=== PATIENT | male | born 1990 | race Caucasian/White ===

== ENCOUNTER 2019-10-18 18:49 | Emergency (ER) | payer OTHER ==
[~2019-10-18] VITALS: Ht 177.8 cm; Wt 88.5 kg
[2019-10-18] MEDS ORDERED: SODIUM CHLORIDE 0.9% 1000ML 1,000 ML IV STA (19:03)
--- NOTE | 2019-10-18 19:15 | NUR ---
CALL CENTER DIRECTOR PERSONNEL INITIALLY APPROACHED BY DR. AMEYA RIVERA (DOCTOR OF ADDICTION SPEACIALIST) ASKING IF WE DETOX PATIENTS, WAS INSTRUCTED BY WEIGHER AND CHARGER THAT WE ARE NOT A DETOX CENTER, DR. RIVERA WALKED OUT OF FACILITY AND THEN CAME BACK STATING HE HAD SOMEONE THAT NEEDED SIMPLY TO BE CLEARED SO TO BE ADMITTED TO A BEHAVIORAL FACILTY? PT WAS WHEELED INTO FRONT LOBBY IN WHEELCHAIR BY . ONCE CALLED BACK TO TRIAGE AREA, PT WAS ASSISTED ONTO STRETCHER BY MYSELF, STANDBY ASSISTANCE ONLY NEEDED. PT WAS TRIAGED. AND IV STARTED TO LEFT FOREARM.
--- NOTE | 2019-10-18 19:20 | NUR ---
CALLED INTO ROOM BY DR RIVERA, ASKED IF PT CAN GO TO RESTROOM, I ASKED PATIENT IF IT WAS OK TO USE A URINAL SINCE WE PROBABLY WOULD NOT BE ABLE TO ASSIST PATIENT TO AND FROM RESTROOM FREQUENT SHAINADEBBI MAY NEED? PT WAS WHEELED INTO TRIAGE AREA AND INITALLY NEEDED ASSISTANCE TO GET ONTO STRETHCER, PT AGREED TO URINAL BUT THEN ASKED WHAT WERE WE GOING TO DO FOR HIS MINOR ABRASIONS TO HIS FEET, WHEN TOLD THAT WE WILL TAKE CARE OF THEM BUT RIGHT NOW THAT IS NOT A PRIORITY, PT LIFTED RT PANT LEG UP AND SHOWED A LARGER HEALING ABRASION TO RIGHT KNEE, AGAIN I NOTIFIED PT THAT WE CAN TAKE ARE OF IT BUT FOR NOW HE WOULD HAVE TO WAIT TO WE CAN DO OTHER PERTIENT TASKS, PT STATED THAT THE ABRASIONS REALLY HURT AT WHICH TIME I NOTIFIED HIM THAT WE PROBABLY WOUD NOT BE ABLE TO GIVE HIM PAIN MEDS IF THAT IS WHAT HE WAS NEEDING, PT STATED NO I DON'T WANT PAIN MEDS I JUST WANT THESE TO STOP HURTING, I ASKED PT IF HE FELT THAT BY SIMPLY PUTTING NEOSPORIN AND A BANDAID HIS PAIN WOULD BE BETTER (AT WHICH TIME DR. RIVERA SNICKERED) PT STATED YES, I WALKED STRAIGHT OVER TO [facility] AND GOT SOME NEOSPORIN AND ASKED THE TINO THE EMT TO SEE IF HE COULD DRESS THE ABRASIONS BY APPLYING NEOSPORIN, TINO DID SO BUT CAME OUT OF ROOM SAYING PATIENT WAS SAYING THE NEOSPORIN DID NOTHING FOR HIS PAIN. DR RIVERA CAME OUT OF ROOM AND WENT TO ASK DIRECTOR OF DEVELOPMENT AND MARKETING PERSONNEL FOR MY INFORMATION BECAUSE HE WAS GOING TO FILE AN INCIDENT REPORT? AT WHICH TIME I WENT OUT AND ASKED DR RIVERA FOR HIS CREDITIALS BC I FELT HE WAS GOING TO POSSIBLY LEAVE THE PATIENT, HE HAD INDICATED TO BARRY THE DAY DIRECTOR OF DEVELOPMENT AND MARKETING PERSONNEL? I FELT HE WAS GOING TO LEAVE PATIENT HERE FOR US TO TRANSFER OUT TO [facility]?
--- NOTE | 2019-10-18 19:20 | NUR ---
WHILE SPEAKING SITH DR. 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 HE FELT I WAS NOT RIGHT IN MINIMIZING PATIENTS ABRASIONS AND WHICH TIME I TOLD HIM I FELT HE WAS NOT A MEDICAL DOCTOR SO HOW COULD HE PROPERLY EVALUATE AN ABRASION, I MOE ASKED FOR HIS MEDICAL LICENSE AND HE STATED HE WAS GOING TO BE REPORTING ME? WHEN I RETURNED TO [facility]ANG IV FLUIDS ON PATIENT, PT REFUSED ANYTHING FROM ME, TINO SHEBA WAS IN ROOM WITH ME WITNESSING AND I SAID I WOULD LEAVE ROOM SOON I HUNG IV FLUIDS AND WHICH TIME HE SAID HE DID NOT WANT ANY FURTHER TREATMENT, HE WANTED TO SEE "AMEYA", I TTOLD HIM HE WAS OUTSIDE AND HE WOULD BE HOPEFULLY BE BACK, DR. MENCHACA ATTEMPTED TO START IV FLUIDS AND PATIENT AND HE REFUSED ANY TREATMENT FORM MD WELL. WHEN DR RIVERA RETURNED, DR MENCHACA AND HE WENT INTO ROOM AND DISCUSSED OPTIONS FOR PATIENT, PATIENT AGREED TO GET FLUIDS AND THEN LEAVE?
[2019-10-18] MEDS ORDERED: NEOMYCIN/POLYMYX/BACITR OINT 0.9 GM PKT ONE (19:22)
[2019-10-18] MEDS ORDERED: SODIUM CHLORIDE 0.9% 1000ML 1,000 ML ONE (19:32)
--- NOTE | 2019-10-18 19:45 | NUR ---
TINO DE SOUZA CALLED INTO ROOM BY DR RIVEAR FOR POSSIBLE NEED ONCE AGAIN TO URINATE? PER TINO ON HIS RETURN TO NURSES DESK, PT AND DR RIVERA WERE ARGUING TO PATIENTS NEED TO STAY AND BE TREATED FOR [facility], TINO STATES DR RIVERA THREATENED PATIENT BY SAYING IF HE PULLED OUT IV AND LEFT OUR FACILITY DR RIVERA WOULD HAVE TO CALL LAW ENFORCEMENT TO HAVE PATIENT ARRESTED? ONCE FLUIDS WERE COMPLETED, DR. MENCHACA DISHARGED PAITENT, TINO REMOVED PATIENTS IV AND PATIENT WALKED OUT OF FACILITY ON OWN, DR RIVERA WAS ON PHONE AND I HAD SAID WE NEEDED TO GIVE PATIENT DISCHARGE PAPERWORK AND HAVE HIM SIGN, COPY OF PATIENTS LAB RESULTS WAS GIVEN TO DR RIVERA, DR RIVERA WALKED OUT OF FACILITY AND STATED TO ENERGY CONSULTANT PERSONNEL THAT PER NASIR GROVES (THE PERSON HE WAS TALKING TO ON PHONE ON WAY OUT OF FACILITY), DR RIVERA AND OR PATIENT DID NOT HAVE TO SIGN ANY DISCHARGE PAPERWORK, DR RIVERA GAVE ENERGY CONSULTANT PERSONNEL NAME OF ANTONELLA MOLINA, PATIENTS BROTHER WHO IS A MIXER MACHINE FEEDER AND WILL BE ALSO CONTACTING NASIR CASE.
--- OUTSIDE RECORDS SUMMARY | 2019-10-20 14:01 | XMS REPORT ---
Author Author [facility] Address Unknown Phone Unavailable Care Team Providers Care Ship Rigger Name Role Phone ROBERTO JONES Unavailable Unavailable Problems This patient has no known problems. Allergies, Adverse Reactions, Alerts This patient has no known allergies or adverse reactions. Medications This patient has no known medications. Results Test Description Test Time Test Comments Text Results Atomic Results Result Comments PT/APTT 2018-08-28 06:01:00 PROTIME (BEAKER) (test fayo=707) 13.5 seconds 11.8-14.4 INR (BEAKER) (test upcc=265) 1.0 1.2-1.5 PARTIAL THROMBOPLASTIN TIME (BEAKER) (test ghgp=441) 35.6 seconds 23.2-36.1 RECOMMENDED COUMADIN/WARFARIN INR THERAPY RANGESSTANDARD DOSE: 2.0 - 3.0 Inclu myra: PROPHYLAXIS for venous thrombosis, systemic embolization; TREATMENT for kimmy ous thrombosis and/or pulmonary embolus.HIGH RISK: Target INR is 2.5-3.5 for pat ients with mechanical heart valves.BASIC METABOLIC [id number] 05:58:00* Test Item Value Reference Range Comments SODIUM (BEAKER) (test puug=647) 138 meq/L 135-148 POTASSIUM (BEAKER) (test bnhm=632) 4.5 meq/L 3.5-5.5 CHLORIDE (BEAKER) (test jwuo=435) 104 meq/L 98-106 CO2 (BEAKER) (test qbeq=511) 25 meq/L 20-31 BLOOD UREA NITROGEN (BEAKER) (test dciu=525) 11 mg/dL 10-26 CREATININE (BEAKER) (test hfqm=580) 1.09 mg/dL 0.50-1.20 GLUCOSE RANDOM (BEAKER) (test wfaf=007) 96 mg/dL 70-110 CALCIUM (BEAKER) (test itub=868) 9.5 mg/dL 8.5-10.5 EGFR (BEAKER) (test ithz=1276) 81 mL/min/1.73 sq m ESTIMATED GFR IS NOT ACCURATE CREATININE CLEARANCE IN PREDICTING GLOMERULAR FILTRATION RATE. ESTIMATED GFR IS NOT APPLICABLE FOR DIALYSIS PATIENTS. CBC W/PLT COUNT & AUTO [id number] 05:46:00* Test Item Value Reference Range Comments WHITE BLOOD CELL COUNT (BEAKER) (test yqey=204) 10.2 K/ L 4.0-10.0 RED BLOOD CELL COUNT (BEAKER) (test ztrc=437) 4.62 M/ L 4.20-5.80 HEMOGLOBIN (BEAKER) (test qloy=403) 14.3 GM/DL 13.0-16.8 HEMATOCRIT (BEAKER) (test nuaa=021) 42.7 % 36.0-50.0 MEAN CORPUSCULAR VOLUME (BEAKER) (test xfnr=977) 92.4 fL 82.0-99.0 MEAN CORPUSCULAR HEMOGLOBIN (BEAKER) (test mtad=253) 31.0 pg 27.0-33.0 MEAN CORPUSCULAR HEMOGLOBIN CONC (BEAKER) (test uaej=182) 33.5 GM/DL 32.0-36.0 RED CELL DISTRIBUTION WIDTH (BEAKER) (test jnfr=823) 13.1 % 12.0-15.0 PLATELET COUNT (BEAKER) (test bemr=955) 282 K/CU MM 150-430 MEAN PLATELET VOLUME (BEAKER) (test pwho=445) 9.0 fL 6.0-11.5 MPV-Approximately 20% positive bias due to method change. NUCLEATED RED BLOOD CELLS (BEAKER) (test hpjh=861) 0 /100 WBC 0-0 NEUTROPHILS RELATIVE PERCENT (BEAKER) (test kfsn=903) 67 % LYMPHOCYTES RELATIVE PERCENT (BEAKER) (test seka=844) 19 % MONOCYTES RELATIVE PERCENT (BEAKER) (test jkpy=436) 10 % EOSINOPHILS RELATIVE PERCENT (BEAKER) (test skpe=267) 3 % BASOPHILS RELATIVE PERCENT (BEAKER) (test upob=495) 1 % NEUTROPHILS ABSOLUTE COUNT (BEAKER) (test whqd=111) 6.83 K/ L 1.80-8.00 LYMPHOCYTES ABSOLUTE COUNT (BEAKER) (test tahg=030) 1.91 K/ L 1.48-4.50 MONOCYTES ABSOLUTE COUNT (BEAKER) (test lxpm=689) 1.02 K/ L 0.00-1.30 EOSINOPHILS ABSOLUTE COUNT (BEAKER) (test yvqb=621) 0.27 K/ L 0.00-0.50 BASOPHILS ABSOLUTE COUNT (BEAKER) (test fnsg=957) 0.08 K/ L 0.00-0.20 IMMATURE GRANULOCYTES-RELATIVE PERCENT (BEAKER) (test bfcb=6955) 0 % 0-0 BASIC METABOLIC [id number] 18:42:00* Test Item Value Reference Range Comments SODIUM (BEAKER) (test opgy=984) 139 meq/L 135-148 POTASSIUM (BEAKER) (test asty=715) 4.5 meq/L 3.5-5.5 CHLORIDE (BEAKER) (test humf=647) 103 meq/L 98-106 CO2 (BEAKER) (test kxuo=540) 25 meq/L 20-31 BLOOD UREA NITROGEN (BEAKER) (test eilp=373) 11 mg/dL 10-26 CREATININE (BEAKER) (test enms=861) 1.08 mg/dL 0.50-1.20 GLUCOSE RANDOM (BEAKER) (test hdza=421) 93 mg/dL 70-110 CALCIUM (BEAKER) (test ktzd=952) 10.0 mg/dL 8.5-10.5 EGFR (BEAKER) (test unhw=9723) 81 mL/min/1.73 sq m ESTIMATED GFR IS NOT ACCURATE CREATININE CLEARANCE IN PREDICTING GLOMERULAR FILTRATION RATE. ESTIMATED GFR IS NOT APPLICABLE FOR DIALYSIS PATIENTS. PROTHROMBIN TIME/[id number] 18:29:00* Test Item Value Reference Range Comments PROTIME (BEAKER) (test ndwo=819) 12.7 seconds 11.8-14.4 INR (BEAKER) (test tura=782) 1.0 1.2-1.5 RECOMMENDED COUMADIN/WARFARIN INR THERAPY RANGESSTANDARD DOSE: 2.0 - 3.0 Inclu myra: PROPHYLAXIS for venous thrombosis, systemic embolization; TREATMENT for kimmy ous thrombosis and/or pulmonary embolus.HIGH RISK: Target INR is 2.5-3.5 for pat ients with mechanical heart valves.CBC W/PLT COUNT & AUTO [id number] 18:23:00* Test Item Value Reference Range Comments WHITE BLOOD CELL COUNT (BEAKER) (test oars=859) 11.6 K/ L 4.0-10.0 RED BLOOD CELL COUNT (BEAKER) (test meir=459) 4.90 M/ L 4.20-5.80 HEMOGLOBIN (BEAKER) (test yqqy=686) 15.1 GM/DL 13.0-16.8 HEMATOCRIT (BEAKER) (test cxjw=079) 44.8 % 36.0-50.0 MEAN CORPUSCULAR VOLUME (BEAKER) (test jgbe=885) 91.4 fL 82.0-99.0 MEAN CORPUSCULAR HEMOGLOBIN (BEAKER) (test jret=311) 30.8 pg 27.0-33.0 MEAN CORPUSCULAR HEMOGLOBIN CONC (BEAKER) (test tajw=391) 33.7 GM/DL 32.0-36.0 RED CELL DISTRIBUTION WIDTH (BEAKER) (test zxca=623) 13.1 % 12.0-15.0 PLATELET COUNT (BEAKER) (test rnon=157) 284 K/CU MM 150-430 MEAN PLATELET VOLUME (BEAKER) (test vqjk=555) 8.9 fL 6.0-11.5 MPV-Approximately 20% positive bias due to method change. NUCLEATED RED BLOOD CELLS (BEAKER) (test scom=949) 0 /100 WBC 0-0 NEUTROPHILS RELATIVE PERCENT (BEAKER) (test tzli=108) 74 % LYMPHOCYTES RELATIVE PERCENT (BEAKER) (test xzub=592) 15 % MONOCYTES RELATIVE PERCENT (BEAKER) (test mkmx=537) 8 % EOSINOPHILS RELATIVE PERCENT (BEAKER) (test sopp=471) 2 % BASOPHILS RELATIVE PERCENT (BEAKER) (test qkow=809) 1 % NEUTROPHILS ABSOLUTE COUNT (BEAKER) (test plsf=851) 8.57 K/ L 1.80-8.00 LYMPHOCYTES ABSOLUTE COUNT (BEAKER) (test cqet=363) 1.72 K/ L 1.48-4.50 MONOCYTES ABSOLUTE COUNT (BEAKER) (test bnnu=243) 0.94 K/ L 0.00-1.30 EOSINOPHILS ABSOLUTE COUNT (BEAKER) (test kdjl=443) 0.20 K/ L 0.00-0.50 BASOPHILS ABSOLUTE COUNT (BEAKER) (test ynit=464) 0.08 K/ L 0.00-0.20 IMMATURE GRANULOCYTES-RELATIVE PERCENT (BEAKER) (test yamd=6699) 0 % 0-0 VENOUS DOPPLER LEG, [id number] 17:27:00Reason for exam:->LEG PAINFINAL REPORT Right lower extremity venous Doppler evaluation, 08/27/2018 Clinical History: Leg pain Discussion: Keller-scale, color Doppler, and spectral waveform analysis evaluations of the right lower extremity deep venous systems are obtained. There is extensive, occlusive thrombus throughout the deep veins of the right lower extremity involving the thigh, knee and calf. Findings were discussed by telephone with Dr. Jones at 5:25 p.m. on 08/27/2018. Signed: Shan Whitley MDReport Verified Date/Time: 08/27/2018 17:27:29 Reading Location: [facility] C0X Ortho Consult Reading Room
== END 2019-10-18 20:05 | disposition home or self-care (01) ==
LOC: FSED 18:49
DX: F10.129 Alcohol abuse with intoxication, unspecified (principal); S90.812A Abrasion, left foot, initial encounter; S90.811A Abrasion, right foot, initial encounter; M25.561 Pain in right knee; Z86.718 Personal history of other venous thrombosis and embolism
CPT/HCPCS: 36415; 80053; 80076; 80320; 85025; 99283; J7030